=== PATIENT | male | born 1960 | race Caucasian/White ===

== ENCOUNTER 2021-08-08 06:19 | Day surgery (SDC) | payer OTHER ==
[~2021-08-08] VITALS: Ht 177.8 cm; Wt 110.7 kg
[~2021-08-08 06:19] MED LIST: FAMOTIDINE20 M3 PO; FUROSEMIDE20 MG PO; LEVOTHYROXIN125 MCG PO; LOSARTAN POTASS50 MG PO; MULTI VIT PO; TAMSULOSIN HCL0.4 MG PO
[2021-08-08 08:33] VITALS: BP 129/80
== END 2021-08-08 08:18 | disposition home or self-care (01) | DRG 951 ==
LOC: ORM 06:19
PROVIDERS: ATTEND Surgery
PROC: 0DJD8ZZ Inspection of Lower Intestinal Tract, Via Natural or Artificial Opening Endoscopic (ICD-10-PCS; principal; 2021-08-08)
DX: Z12.11 Encounter for screening for malignant neoplasm of colon (principal); K64.8 Other hemorrhoids; I10 Essential (primary) hypertension; Z80.0 Family history of malignant neoplasm of digestive organs